=== PATIENT | female | born 1960 | race Caucasian/White ===

== ENCOUNTER 2016-11-17 21:14 | Emergency (ER) | payer MEDICAID ==
[~2016-11-17] VITALS: Ht 160 cm; Wt 75.5 kg
[~2016-11-17 21:14] MED LIST: ATEN100T PO; CYCL5TAB PO; EZET10TA18 PO; MORP30CA15 PO; OXYC5TAB3 PO; SIMV40TA3 PO; TEMA30CA PO; TRAZ100T15 PO; VERA180T56 PO
[2016-11-17 22:00] LABS: HEMATOCRIT 37.3 % (34.6-47.8); HEMOGLOBIN 12.5 g/dL (11.7-16.4); WHITE BLOOD COUNT 8.4 x10^3/uL (3.4-10)
[2016-11-17] MEDS ORDERED: ONDANSETRON 2MG/ML, 2ML IVPush ONE (22:00)
[2016-11-17] MEDS ORDERED: MORPHINE SULFATE 4 MG/ML, 1ML IVPush PRN (22:00)
[2016-11-17 22:12] LABS: BLOOD UREA NITROGEN 10 mg/dL (7-18)
[2016-11-17 22:17] LABS: IS PT STATUS REG ER OR PRE ER? YES
[2016-11-17] MEDS ORDERED: HYDROmorphone 1 MG/ML, 1ML IM ONE (23:00)
[2016-11-17] MEDS ORDERED: HYDROmorphone 1 MG/ML, 1ML ONE (23:04)
[2016-11-17 23:17] VITALS: BP 164/87
== END 2016-11-17 23:19 | disposition home or self-care (01) ==
LOC: ED 22:45
DX: R07.89 Other chest pain (principal); I10 Essential (primary) hypertension; E78.00 Pure hypercholesterolemia, unspecified; F17.200 Nicotine dependence, unspecified, uncomplicated
CPT/HCPCS: 36415; 71010; 80048; 82040; 84484; 85025; 93005; 99285